=== PATIENT | male | born 1940 | race Caucasian/White ===

== ENCOUNTER 2017-07-26 20:05 | Inpatient (IN) | payer MEDICARE ==
[2017-07-26] MEDS: HYDROmorphone 2 MG/ML VIAL IV (20:57)
[2017-07-26 21:50] LABS: ADD MAN DIFF? NO
[2017-07-26 21:56] LABS: BASO % 1 % (0-3); EOS # 0.2 x10^3/uL (0.0-0.7); EOS % 3 % (0-3); HEMATOCRIT 32.8 % (39.0-53.0); HEMOGLOBIN 11.1 g/dL (13.0-17.5); LYMPH # 0.6 x10^3/uL (1.0-4.8); LYMPH % 9 % (24-48); MEAN CORPUSCULAR HEMOGLOBIN 37 pg (25-35); MEAN CORPUSCULAR HGB CONC 34 g/dL (31-37); MEAN CORPUSCULAR VOLUME 108 fL (79-100); MONO # 0.5 x10^3/uL (0.0-1.1); MONO % 8 % (0-9); NEUT % 79 % (31-73); PLATELET COUNT 43 x10^3/uL (140-400); RED BLOOD COUNT 3.04 x10^6/uL (4.30-5.70); RED CELL DISTRIBUTION WIDTH 13.5 % (11.5-14.5); WHITE BLOOD COUNT 6.3 x10^3/uL (4.0-11.0)
[2017-07-26 22:01] LABS: ANION GAP 10 (6-14); BLOOD UREA NITROGEN 19 mg/dL (8-26); CALCIUM 8.6 mg/dL (8.5-10.1); CARBON DIOXIDE 27 mmol/L (21-32); CHLORIDE 107 mmol/L (98-107); CREATININE 1.4 mg/dL (0.7-1.3); GFR 49.3; GLUCOSE 142 mg/dL (70-99); POTASSIUM 3.6 mmol/L (3.5-5.1); SODIUM 144 mmol/L (136-145)
[2017-07-26 22:05] LABS: INR 1.2 (0.8-1.1); PROTHROMBIN TIME PATIENT 14.1 SEC (11.7-14.0)
[2017-07-26 22:15] LABS: PLT ESTIMATE DECREASED (ADEQUATE); POLYCHROMASIA SLIGHT
[2017-07-26 22:25] LABS: PARTIAL THROMBOPLASTIN TIME 25 SEC (24-38)
[2017-07-27] MEDS: IV NORMAL SALINE 1000ML BAG 1,000 ML IV ×3 (01:04→14:00)
[2017-07-27] MEDS: MORPHINE SULFATE 2 MG/ML DISP.SYRIN. IV ×6 (02:24→22:03)
[2017-07-27] MEDS: ONDANSETRON PF 4 MG/2 ML VIAL. IV (13:39)
[2017-07-27] MEDS ORDERED: fentaNYL PF VIAL 100 MCG/2 ML VIAL ×3 (16:24→18:59)
[2017-07-27] MEDS ORDERED: ETOMIDATE 20 MG/10 ML VIAL. IV (16:26)
[2017-07-27] MEDS ORDERED: ONDANSETRON PF 4 MG/2 ML VIAL. (16:26)
[2017-07-27] MEDS ORDERED: LIDOCAINE 2% PF Vial for OR 5 ML VIAL. (16:26)
[2017-07-27] MEDS ORDERED: PHENYLEPHRINE in 0.9% NACL PF 1 MG/10 ML SYRINGE. IV (17:22)
[2017-07-27] MEDS ORDERED: PHENYLEPHRINE 10 MG/ML VIAL. (17:22)
[2017-07-27] MEDS: MORPHINE SULFATE 5 MG, KETOROLAC 30 MG, ROPIVacaine 0.5% PF 60 ML, EPINEPHrine 0.5 MG i... INT ART (17:42)
[2017-07-27 18:13] LABS: MRSA BY PCR Negative (Negative)
[2017-07-27] MEDS: fentaNYL PF VIAL 100 MCG/2 ML VIAL IV ×2 (19:07→19:31)
[2017-07-27] MEDS: IV RINGERS,LACTATED 1000ML 1,000 ML IV (19:10)
[2017-07-27] MEDS ORDERED: HYDROcodone/APAP 7.5/325MG 1 TAB TABLET PO ×2 (19:15)
[2017-07-27] MEDS ORDERED: DEXTROSE 50% 25 GM / 50ML DISP.SYRIN. IV (19:15)
[2017-07-27] MEDS ORDERED: MORPHINE SULFATE 4 MG/ML DISP.SYRIN. IV (19:15)
[2017-07-27] MEDS ORDERED: oxyCODONE IR 5 MG TABLET PO (19:15)
[2017-07-27] MEDS ORDERED: PROCHLORPERAZINE 10 MG/2 ML VIAL. IV (19:15)
[2017-07-27] MEDS ORDERED: ONDANSETRON PF 4 MG/2 ML VIAL. IV ×2 (19:15)
[2017-07-27] MEDS ORDERED: POLYETHYLENE GLYCOL 3350 17 GM PACKET. PO (19:15)
[2017-07-27] MEDS ORDERED: MORPHINE SULFATE 2 MG/ML DISP.SYRIN. IV (19:15)
[2017-07-27] MEDS ORDERED: fentaNYL PF VIAL 100 MCG/2 ML VIAL IV ×2 (19:15)
[2017-07-27] MEDS ORDERED: HYDROmorphone 2 MG/ML VIAL IV (19:15)
[2017-07-27] MEDS: LIDOCAINE 1% PF 2 ML VIAL. ID (19:22)
[2017-07-27] MEDS ORDERED: ceFAZolin SODIUM 1 GM in IV DEXTROSE 5% 50 ML IV (19:30)
[2017-07-27] MEDS: ceFAZolin SODIUM IV Push 1 GM VIAL. IVP (23:07)
[2017-07-28] MEDS: ceFAZolin SODIUM IV Push 1 GM VIAL. IVP ×2 (05:02→12:31)
[2017-07-28] MEDS: MORPHINE SULFATE 2 MG/ML DISP.SYRIN. IV (05:07)
[2017-07-28] MEDS ORDERED: MAGNESIUM HYDROXIDE 2,400 MG/30 ML ORAL.SUSP. PO (06:00)
[2017-07-28 08:52] LABS: ADD MAN DIFF? NO
[2017-07-28 08:56] LABS: BASO % 0 % (0-3); EOS # 0.2 x10^3/uL (0.0-0.7); EOS % 2 % (0-3); HEMATOCRIT 21.8 % (39.0-53.0); HEMOGLOBIN 7.3 g/dL (13.0-17.5); LYMPH # 0.9 x10^3/uL (1.0-4.8); LYMPH % 10 % (24-48); MEAN CORPUSCULAR HEMOGLOBIN 35 pg (25-35); MEAN CORPUSCULAR HGB CONC 33 g/dL (31-37); MEAN CORPUSCULAR VOLUME 106 fL (79-100); MONO % 11 % (0-9); NEUT # 6.9 x10^3uL (1.8-7.7); NEUT % 77 % (31-73); PLATELET COUNT 32 x10^3/uL (140-400); RED BLOOD COUNT 2.06 x10^6/uL (4.30-5.70)
[2017-07-28 09:00] LABS: ANION GAP 10 (6-14); BLOOD UREA NITROGEN 20 mg/dL (8-26); CALCIUM 7.1 mg/dL (8.5-10.1); CARBON DIOXIDE 22 mmol/L (21-32); CHLORIDE 113 mmol/L (98-107); CREATININE 1.7 mg/dL (0.7-1.3); GFR 39.4; GLUCOSE 148 mg/dL (70-99); POTASSIUM 4.4 mmol/L (3.5-5.1); SODIUM 145 mmol/L (136-145)
[2017-07-28] MEDS ORDERED: ENOXAPARIN 40 MG/0.4 ML SYRINGE. SQ (09:00)
[2017-07-28] MEDS: SENNOSIDES/DOCUSATE 8.6/50MG TABLET. PO (09:00)
[2017-07-28 09:12] LABS: POC GLUCOSE 152 mg/dL (70-99)
[2017-07-28 10:36] LABS: BASE EXCESS ABG -3 mmol/L (-3-3); HCO3 ABG 22 mmol/L (21-28); PCO2 ABG 34 mmHg (35-46); PH ABG 7.42 (7.35-7.45); PO2 ABG 175 mmHg (65-108); SAT O2 ABG 98 % (92-99)
[2017-07-28] MEDS: IPRATRPIUM/ALBUTEROL 0.5/2.5MG 3 ML NEBU. NEB ×2 (12:13→15:10)
[2017-07-28] MEDS: cefTRIAXone IV Push 1 GM VIAL. IVP (12:31)
[2017-07-28] MEDS ORDERED: BISACODYL 10 MG SUPP.RECT. PR (16:00)
== END 2017-07-28 15:30 | disposition short-term general hospital (02) | DRG 469 ==
LOC: ER 20:05 → 4 NORTH 21:41
PROC: 0SRR0J9 Replacement of Right Hip Joint, Femoral Surface with Synthetic Substitute, Cemented, Open Approach (ICD-10-PCS; principal; 2017-07-27 16:00)
DX: S72.001A Fracture of unspecified part of neck of right femur, initial encounter for closed fracture (principal); J96.91 Respiratory failure, unspecified with hypoxia; N17.9 Acute kidney failure, unspecified; I95.9 Hypotension, unspecified; Z94.84 Stem cells transplant status; C82.20 Follicular lymphoma grade III, unspecified, unspecified site; C90.00 Multiple myeloma not having achieved remission; D69.6 Thrombocytopenia, unspecified; I27.20 Pulmonary hypertension, unspecified; J98.11 Atelectasis; R59.1 Generalized enlarged lymph nodes; E03.9 Hypothyroidism, unspecified; N18.9 Chronic kidney disease, unspecified; I12.9 Hypertensive chronic kidney disease with stage 1 through stage 4 chronic kidney disease, or unspecified chronic kidney disease; E78.5 Hyperlipidemia, unspecified; E78.00 Pure hypercholesterolemia, unspecified; W01.0XXA Fall on same level from slipping, tripping and stumbling without subsequent striking against object, initial encounter; Y93.89 Activity, other specified; Y99.8 Other external cause status; Y92.009 Unspecified place in unspecified non-institutional (private) residence as the place of occurrence of the external cause; Z91.012 Allergy to eggs; Z91.013 Allergy to seafood; Z88.7 Allergy status to serum and vaccine; Z91.018 Allergy to other foods; Z83.49 Family history of other endocrine, nutritional and metabolic diseases; Z80.3 Family history of malignant neoplasm of breast; Z80.42 Family history of malignant neoplasm of prostate; Z85.46 Personal history of malignant neoplasm of prostate
CPT/HCPCS: 36415; 36600; 71045; 73502; 73552; 76700; 80048; 82805; 82962; 85025; 85610; 85730; 86850; 86900; 86901; 87641; 93005; 94640; 96374; 99285; 99285-25; C1713; J0171; J0690; J0696; J1170; J1885; J2270; J2370; J2405; J2795; J3010; J7030; J7620